=== PATIENT | female | born 1985 | race Caucasian/White ===

== ENCOUNTER → 2021-09-30 15:59 | Outpatient (CLI) | payer OTHER, BC, SELFPAY ==
[2021-09-30 20:21] LABS: Urine N gonorrhoeae NOT DETECTED
[2021-09-30 20:54] LABS: Urine Chlamydia NOT DETECTED
== END ==
PROVIDERS: Visit Provider Obstetrics & Gynecology
DX: Z34.81 Encounter for supervision of other normal pregnancy, first trimester (principal); Z3A.10 10 weeks gestation of pregnancy
CPT/HCPCS: 87491; 87591

== ENCOUNTER → 2021-12-03 15:13 | Outpatient (CLI) | payer OTHER, BC, SELFPAY ==
--- NOTE | 2021-12-03 15:15 | DI.US.S_ITS ---
PROCEDURE: US OB >= 14 WEEKS FETUS INDICATIONS: 20 Week Anatomy Scan OUTSIDE/PRIOR DATING DATA: Last menstrual period (LMP): 07/18/2021. LMP-based estimated date of delivery (HEATHER): 04/24/2022. First dating scan (date and location): 12/03/2021. Estimated date of delivery (HEATHER) from first dating scan: 04/17/2022. The calculations are made using the clinical HEATHER based on LMP of 04/24/2022 TECHNIQUE: Real-time scanning was performed of the fetus, with image documentation and biometric measurements. Endovaginal scanning: Not performed COMPARISON: None FINDINGS: General: A single living intrauterine gestation is present. Presentation: Transverse with head towards maternal left. Placenta: Placental position is posterior , without previa. Amniotic fluid index: 12.1 cm, normal range is 5-24 cm. Single deepest vertical pocket is 4.5 cm. heart rate: 139 beats per minute. Maternal cervical canal: 5.5 cm long. Normal lower limit is 2.5 cm. biometrics: Biparietal diameter: 4.6 cm, 19 weeks 6 days Head circumference: 17.7 cm, 20 weeks 1 day Abdominal circumference: 16.2 cm, 21 weeks 2 days Femur length: 3.6 cm, 21 weeks 3 days Clinically estimated gestational age: 19 weeks 5 days Composite gestational age from present scan: 20 weeks 5 days Estimated weight and percentile: 404 g, 99th percentile Anatomic survey: Neuro: Ventricles are non-dilated at less than 10 mm. Cisterna magna is normal at 3-11 mm. Cerebellum is normal in size and morphology. Nuchal skin fold: Normal at less than 6 mm between 14-21 weeks gestational age. Face: Nose and lips, facial profile are normal. Spine: No evidence for spina bifida. Heart: Suboptimally evaluated secondary to position Diaphragm: Diaphragm is intact. Stomach: Left-sided stomach is present. Kidneys: No hydronephrosis. Normal is less than 5 mm in 2nd trimester, less than 7 mm in 3rd trimester. Cord: 3-vessel cord has orthotopic insertion. Bladder: Normal in size. Extremities: All 4 extremities identified. IMPRESSION: 1. Living 2nd trimester intrauterine . Current ultrasound dates are 7 days greater than clinical dates. However, clinical dates are based on LMP and not an initial ultrasound. The estimated weight measurement is 99th percentile. 2. Cardiac structures suboptimally imaged secondary to position. 3. Otherwise unremarkable anatomy study. Comment: Recommend that the patient return for a limited targeted evaluation of the cardiac structures. We strive to produce accurate, complete, and clear reports of imaging services. To assist us in improving patient care, this report was composed using standard report templates and voice recognition software. Therefore, it may contain abnormal punctuation, insertions and/or omissions. Occasional wrong-word or sound-alike substitutions may occur. Though we review the report and make efforts to correct it, we do recommend that the report be read carefully in proper context to recognize any text inaccuracies. Dictated by: Gerson Caro M.D. on 12/04/2021 at 10:17 Approved by: Gerson Caro M.D. on 12/04/2021 at 10:26
== END ==
PROVIDERS: Referring Provider Obstetrics & Gynecology; Visit Provider Obstetrics & Gynecology
DX: Z34.82 Encounter for supervision of other normal pregnancy, second trimester (principal); Z3A.20 20 weeks gestation of pregnancy
CPT/HCPCS: 76811

== ENCOUNTER → 2021-12-31 14:48 | Outpatient (CLI) | payer OTHER, BC, SELFPAY ==
--- NOTE | 2021-12-31 14:51 | DI.US.S_ITS ---
PROCEDURE: US OB FOLLOW UP INDICATIONS: HEART NOT WELL SEEN ON 20 WEEK ANATOMY SCAN OUTSIDE/PRIOR DATING DATA: Last menstrual period (LMP): 07/18/21. LMP-based estimated date of delivery (HEATHER): 04/24/22. First dating scan (date and location): 12/03/21. Estimated date of delivery (HEATHER) from first dating scan: 04/17/22. The calculations are made using the 2nd trimester ultrasound HEATHER of 04/17/22. TECHNIQUE: Real-time scanning was performed of the fetus, with image documentation. Endovaginal scanning: Not performed COMPARISON: [facility], OB >= 14 WEEKS FETUS, 12/03/2021, 16:49. FINDINGS: A single living intrauterine gestation is present. Presentation: Breech. Placenta: Placental position is posterior, without previa. Amniotic fluid index: 16.9 cm, normal range is 5-24 cm. Single deepest vertical pocket is 4.6 cm. heart rate: 152 beats per minute. Maternal cervical canal: Closed and 5.4 cm long. Normal lower limit is 2.5 cm. Biparietal diameter 5.9 cm, 24 weeks, 0 days Head circumference 22.6 cm 24 weeks, five days Abdominal circumference 20.6 cm, 25 weeks, one day Femur length 4.7 cm, 25 weeks, three days Clinically estimated gestational age: 24 weeks, five days Composite gestational age from current scan: 24 weeks, six days. Estimated weight 777 g, 61st percentile Completion of anatomy scan with good visualization of a four chambered heart, and cardiac outflow tracts. IMPRESSION: 1. Single living intrauterine with appropriate growth. 2. Completion of anatomy scan with visualization of normal cardiac structures. Dictated by: Jyothi Menjivar M.D. on 12/31/2021 at 17:31 Approved by: Jyothi Menjivar M.D. on 12/31/2021 at 17:38
== END ==
PROVIDERS: Referring Provider Obstetrics & Gynecology; Visit Provider Obstetrics & Gynecology
DX: O34.219 Maternal care for unspecified type scar from previous cesarean delivery (principal); Z36.2 Encounter for other antenatal screening follow-up; O09.292 Supervision of pregnancy with other poor reproductive or obstetric history, second trimester; Z3A.24 24 weeks gestation of pregnancy
CPT/HCPCS: 76816

== ENCOUNTER → 2022-01-12 07:04 | Outpatient (CLI) | payer OTHER, BC, SELFPAY ==
[2022-01-12 09:44] LABS: Add Manual Diff / Slide Review NO; Basophils Absolute Auto 0 /uL (0-100); Basophils Percent Auto 0.2 % (0-2); Eosinophils Absolute Auto 100 /uL (0-450); Eosinophils Percent Auto 0.8 % (2-4); Hematocrit 35.8 % (36-46); Hemoglobin 12.5 g/dL (12.0-16.0); Lymphocytes Absolute Auto 1500 /uL (1100-4500); Mean Corpuscular HGB Conc 34.9 % (30-36); Mean Corpuscular Hemoglobin 32.1 PG (26-34); Mean Corpuscular Volume 92.1 fL (80-100); Monocytes Absolute Auto 400 /uL (0-900); Monocytes Percent Auto 5.1 % (3-14); Neutrophils Absolute Auto 5400 /uL (1500-7000); Neutrophils Percent Auto 73.9 % (50-75); Platelet Count 181 X10^3/uL (150-400); Red Blood Cell Count 3.89 X10^6/uL (4.0-5.2); Red Cell Distribution Width 13.7 % (11.6-14.8); White Blood Cell Count 7.3 X10^3/uL (4.5-11.0)
[2022-01-12 10:17] LABS: GTT (PREG) 1 Hour PP 50gm Dose 136 mg/dL (76-139)
== END ==
PROVIDERS: Referring Provider Obstetrics & Gynecology; Visit Provider Obstetrics & Gynecology
DX: O09.299 Supervision of pregnancy with other poor reproductive or obstetric history, unspecified trimester (principal)
CPT/HCPCS: 36415; 82950; 85025

== ENCOUNTER → 2022-03-24 13:56 | Outpatient (CLI) | payer OTHER, BC, SELFPAY ==
[2022-03-25 17:42] LABS: Strep Grp B PCR NEG for Grp B Strep
== END ==
PROVIDERS: Visit Provider Obstetrics & Gynecology
DX: Z34.83 Encounter for supervision of other normal pregnancy, third trimester (principal); Z3A.36 36 weeks gestation of pregnancy
CPT/HCPCS: 87653

== ENCOUNTER 2022-04-15 05:50 | Inpatient (IN) | payer OTHER, BC, SELFPAY ==
--- NOTE | 2022-04-15 06:16 | PM.OBHP.1 ---
OB HPI Date/Time Date of admission: 04/15/22 Date Patient Seen: 04/15/22 Time Patient Seen: 07:00 History of Present Condition Chief complaint: REPEAT : 5 Para: 2 Estimated Date of Delivery: 04/19/22 Estimated Gestational Age (weeks): 39+3 Narrative: Kavya Read is a 36 year old HEATHER 04/19/2022 admitted now at 39+3 for repeat section. course has been largely uneventful milestones and growth. Group B strep is negative. Indications Operative indications ( section): previous uterine surgery History of Present care: good care Dating criteria: LMP confirmed by 1st trimester US Ultrasounds: normal 1st trimester US and normal mid trimester US Obstetrical complications: none Medical complications: none Preadmission Labs Blood type: A (+) positive -: Antibody screen: negative, GBS status: negative, HBsAG: negative, HIV: negative and RPR/VDLR: negative -: Chlamydia screen: not detected and Gonorrhea screen: not detected -: Rubella: immune and Varicella: immune HCT: 35.8 HCAB: negative PAP: Normal Cell-free DNA: Negative for trisomy 1 hr GTT: 136 Prior (ies) History: Prior sections x2 Evaluation Evaluation Baseline heart rate: 130 Variability: Moderate (11-25) monitor accelerations: Present Monitor Decelerations: Absent Category of Tracing: Reactive Status: Category l PFSH Medical History Chicken pox (~1990) GERD (gastroesophageal reflux disease) (~2004) HPV in female (~2014) Spontaneous Surgical History Anesthesia History of History of wisdom tooth extraction Family History Grandfather Thyroid cancer Cancer of blood vessel Mental health problem Dementia Grandmother Diabetes mellitus Hypertension Social History marital status: number of children: 2 household members: spouse and children lives independently: Yes housing: house pets and animals: No education level: college occupational status: employed current occupational exposures/hazards: No special [place] needs: No seatbelt use: always water heater temp set < 120 deg: Yes working smoke detector in home: Yes fire extinguisher in home: Yes carbon monox detector in home: Yes firearms in home: Yes firearms unloaded and locked: Yes do you feel safe at home: Yes Smoking Status: Former smoker second hand exposure: No alcohol intake: former substance use type: does not use during the past year weight has: remained stable well-balanced diet: daily or most days daily servings fruits/ve-4 caffeine: Yes (limit 200mg) Type(s) of exercise: none Meds Home Medications and Allergies Home Medications Medication Instructions Recorded Confirmed Type prenat.vits,mignon,oqo-nrhr-ehuzv 1 tab PO DAILY 09/18/21 04/13/22 History Allergies Allergy/AdvReac Type Severity Reaction Status Date / Time amoxicillin Allergy Mild Verified 04/13/22 13:28 Review of Systems Review of Systems Narrative: Problem-specific ROS positives included in HPI OB Exam HENMT Head: normal to inspection, normocephalic and atraumatic Eyes General: appearance normal, both eyes and all related structures Resp Effort & Inspection: normal respiratory effort and able to speak in complete sentences Auscultation: clear to auscultation bilaterally Cardio Rate: regular rate Rhythm: regular rhythm Heart Sounds: S1 normal, S2 normal and no murmurs Extremities Lower extremity: Yes normal to inspection GI Inspection: normal to inspection Palpation: Yes soft and Yes no hepatosplenomegaly Uterus Location (Fundal Height): 39 Presentation: vertex Estimated Weight (lbs): 9 Assessment and Plan Assessment and Plan Assessment and Plan narrative: ASSESSMENT 1. Intrauterine gestation, [place], 39+ 3 weeks gestational age 2. Prior section PLAN 1. Admit for repeat section 2. See admission orders Time Spent with Patient Total time spent with greater than 50% in coordination of care (as documented) at patient's floor/unit and/or counseling patient:: 15-24 minutes
[2022-04-15 06:48] LABS: Add Manual Diff / Slide Review NO; Basophils Absolute Auto 0 /uL (0-100); Basophils Percent Auto 0.3 % (0-2); Eosinophils Absolute Auto 0 /uL (0-450); Eosinophils Percent Auto 0.6 % (2-4); Hematocrit 36.5 % (36-46); Hemoglobin 12.8 g/dL (12.0-16.0); Lymphocytes Absolute Auto 1900 /uL (1100-4500); Lymphocytes Percent Auto 24.2 % (25-40); Mean Corpuscular HGB Conc 35.1 % (30-36); Mean Corpuscular Hemoglobin 31.3 PG (26-34); Mean Corpuscular Volume 89.2 fL (80-100); Monocytes Absolute Auto 500 /uL (0-900); Monocytes Percent Auto 6.9 % (3-14); Neutrophils Absolute Auto 5300 /uL (1500-7000); Platelet Count 199 X10^3/uL (150-400); Red Blood Cell Count 4.09 X10^6/uL (4.0-5.2); Red Cell Distribution Width 14.2 % (11.6-14.8); White Blood Cell Count 7.7 X10^3/uL (4.5-11.0)
--- NOTE | 2022-04-15 07:13 | PM.PREOP ---
Pre-operative Note COVID-19 COVID-19 status: Negative Result date/Date tested (Pos, Neg/Pending): 04/15/22 Criteria for continued procedure: Non-surgical alternatives not available or appropriate per current SOC Interval Note History & Physical reviewed/Exam performed by Physician: Yes Changes to H&P: No
[2022-04-15 07:26] LABS: COVID19 -Nasal RAPID Negative (Negative)
[2022-04-15] MEDS: CEFAZOLIN 2 GM/100 ML PREMIX 100 ML IV (08:13)
[2022-04-15] MEDS: LACTATED RINGERS 1,000 ML 100 ML IV ×2 (08:30→10:51)
[2022-04-15] MEDS: ACETAMINOPHEN IV 1,000 MG/100 ML VIAL 400 MG IV (08:30)
--- NOTE | 2022-04-15 08:43 | SUR.OPER ---
Supine on Padded OR bed, head on pillow, safety belt at thigh, arms secured on padded arm boards at <90 degrees abduction. Bump under right buttock. Legs uncrossed with pillow under knees, gel pad to heels, tape over blanket to lower legs. Gel pad under bilateral heels and gel pad between urinary catheter tubing and posterior upper leg.
--- NOTE | 2022-04-15 08:44 | SUR.OPER ---
Viable baby girl delivered at 0833. Placenta delivered. Cord blood tubes X2 and placenta given to L&D RN.
[2022-04-15 09:17] VITALS: BP 115/76; PULSE 96; RESP 15; O2SAT 99
[2022-04-15 09:22] VITALS: BP 177/80; PULSE 111; RESP 26; O2SAT 98
--- NOTE | 2022-04-15 09:22 | PM.OBCS.1 ---
Operative Date/Time/Diagnoses Date of procedure: 04/15/22 Time of procedure: 08:15 Pre-op diagnosis: Intrauterine gestation, [place], 39+ 3 weeks gestational age Prior sections x2 Post-op diagnosis: same Procedure & Clinicians Procedure: Repeat section, low transverse cervical Same procedure as scheduled: Yes Indications: Kavya Read is a 36 year old HEATHER 04/19/2022 admitted now at 39+3 for repeat section.? course has been largely uneventful milestones and growth.? Group B strep is negative. Surgeon: Gordo Corrigan Telephone Coin Box Collector: Kamala Reyes Reason for Telephone Coin Box Collector: Telephone Coin Box Collector required for the safe, effective, and timely completion of this surgery. Anesthesia Type: Spinal Operative Notes Findings: Viable female infant BW 3779 gms. (8 lbs. 5.3 oz.), Apgars 9/9, delivered from the vertex presentation. Normal gravid anatomy. Closure Type: primary Specimen(s): cord blood Intraoperative meds administered: Ketorolac and Pitocin Applied: Catheter Estimated Blood Loss (mL): 700 Blood products transfused: none Procedure in detail: With her informed written consent, the patient was taken to the operating room and placed in the supine position for a repeat section procedure, for the indication(s) above. The abdomen was prepped and draped in the usual manner for section and a pre-surgical timeout was taken per [facility] OR protocol. Once effective anesthesia was confirmed, a 15 cm transverse Pfannenstiel incision was made in the skin and taken down through the subcutaneous tissues to the deep fascia. The deep fascia was incised transversely, the rectus abdominal eyes bluntly and sharply, and the peritoneal cavity entered without difficulty. The lower uterine segment was visualized and the position/presentation palpated. A transverse incision at or above the vesicouterine reflection was made with Metzenbaum scissors and transverse hysterotomy performed near the midline. Amniotomy revealed clear fluid. The incision was extended bilaterally with digital traction and the was delivered without difficulty from the vertex presentation. The infant was vigorous and cord clamping delayed for 60 seconds. The placenta was delivered intact using gentle cord traction and fundal massage.The uterine cavity was then cleared of any clot/debris first with a sloppy wet lap tape followed by a dry lap tape. Ring forceps were then applied to the angles and the midline of the incised RYLEY. A primary closure of the uterus was then accomplished with #1 CCGS in a running interlocking stitch followed by a 2nd layer of #1 CCGS in a running interlocking imbricating stitch. One additional CCGS [id number] suture was required to achieve complete hemostasis. Once pelvic hemostasis was assured, the blsadder flap and anterior peritoneum wwere closed with a running 2-0 Vicryl suture and the fascia closed with #1 Vicryl in a running stitch initiated at both angles and tying separately near the midline. The subcutaneous tissues were reapproximated with 2-0 plain catgut suture using inverted interrupted stitches. The skin edges were then brought together with 4-0 Monocryl in a subcuticular closure and the incision was reinforced with 1 Steri-Strips. An appropriate compression dressing was applied and the patient transferred to PACU for recovery and subsequent transfer to the Center for recuperation. Complications: none [place] Baby 1: Gender: Female Presentation: vertex Position: Left Occiput Anterior Placental Delivery Description: Spontaneous and Expressed Cord Vessel Description: 3 Vessels score (1 min): 9 score (5 min): 9 weight: 8 lb 5.3 oz Post-operative Condition: stable Disposition: PACU Aftercare: routine postop
[2022-04-15 09:30] VITALS: BP 108/70; PULSE 98; RESP 23; O2SAT 99
[2022-04-15 09:32] VITALS: BP 101/66; PULSE 94; RESP 19; TEMP 36.2; O2SAT 98
--- NOTE | 2022-04-15 09:40 | SUR.PHASEI ---
Report called to Verna.
--- NOTE | 2022-04-15 10:00 | SUR.PHASEI ---
Patient transferred to the center. Report given to Verna. VS stable. IV patent. Margo pad, under pad changed, patient cleaned.
[2022-04-15 10:42] VITALS: BP 120/63
[2022-04-15] MEDS: KETOROLAC 30 MG/ML VIAL IV ×2 (14:54→22:07)
[2022-04-15] MEDS: ACETAMINOPHEN 325 MG TABLET 650 MG PO (22:07)
[2022-04-15] MEDS: DOCUSATE 100 MG CAPSULE 200 MG PO (23:27)
[2022-04-16] MEDS: ACETAMINOPHEN 325 MG TABLET 650 MG PO ×3 (05:06→18:58)
[2022-04-16] MEDS: KETOROLAC 30 MG/ML VIAL IV (05:06)
[2022-04-16 07:09] LABS: Add Manual Diff / Slide Review NO; Basophils Absolute Auto 0 /uL (0-100); Basophils Percent Auto 0.3 % (0-2); Eosinophils Absolute Auto 0 /uL (0-450); Eosinophils Percent Auto 0.5 % (2-4); Hematocrit 31.1 % (36-46); Lymphocytes Absolute Auto 1700 /uL (1100-4500); Lymphocytes Percent Auto 20.4 % (25-40); Mean Corpuscular HGB Conc 35.3 % (30-36); Mean Corpuscular Hemoglobin 31.7 PG (26-34); Mean Corpuscular Volume 89.8 fL (80-100); Monocytes Absolute Auto 500 /uL (0-900); Neutrophils Absolute Auto 6200 /uL (1500-7000); Neutrophils Percent Auto 72.8 % (50-75); Platelet Count 166 X10^3/uL (150-400); Red Blood Cell Count 3.46 X10^6/uL (4.0-5.2); Red Cell Distribution Width 14.7 % (11.6-14.8); White Blood Cell Count 8.5 X10^3/uL (4.5-11.0)
--- NOTE | 2022-04-16 09:10 | PM.OBPN.1 ---
Subjective - OB Subjective Patient comments: no complaints and pain well controlled baby status: doing well feeding status: exclusively breast feeding Narrative: Patient is doing well overnight but limited ambulation thus far. Patient tolerating regular diet, pain well controlled, + flatus but no BM as yet. Date Patient Seen: 04/16/22 Time Patient Seen: 09:11 Exam Vital Signs (past 8 hours): Oxygen Delivery Method Room Air Const General: cooperative and comfortable Nutritional Appearance: average body habitus Orientation: alert and oriented x3 HENMT Head: normal to inspection, atraumatic and abrasion Ears: hearing grossly normal bilaterally Face and sinus: face symmetric Eyes General: appearance normal, both eyes and all related structures Conjunctivae: conjunctivae normal Sclera: sclerae normal EOM: EOM intact bilaterally Neck Neck: normal visual inspection Resp Effort & Inspection: normal respiratory effort and able to speak in complete sentences Auscultation: clear to auscultation bilaterally Cardio Rate: regular rate Rhythm: regular rhythm Heart Sounds: S1 normal, S2 normal and no murmurs GI Inspection: normal to inspection and incision (Surgical dressing clean and dry) Palpation: soft, no hepatosplenomegaly, mass (Firm, mildly tender fundus, U -3) and tender (Mild, diffuse postsurgical tenderness) Auscultation: hypoactive bowel sounds External Female Exam: other (No significant bleeding noted) Extrem General: no calf tenderness Psych Appearance: grossly normal Mental Status: mental status grossly normal Speech and Movement: speech and movement normal Mood: congruent mood Affect: normal affect Attitude: cooperative Thought Process: normal Thought Content: normal Judgment: judgment good Objective Labs Result Diagrams: 04/16/22 06:55 Labs: Laboratory Results - last 24 hr 04/16/22 06:55 WBC 8.5 RBC 3.46 L Hgb 11.0 L Hct 31.1 L MCV 89.8 MCH 31.7 MCHC 35.3 RDW 14.7 Plt Count 166 Neut % (Auto) 72.8 Lymph % (Auto) 20.4 L [place] % (Auto) 6.0 Eos % (Auto) 0.5 L Baso % (Auto) 0.3 Neut # (Auto) 6200 Lymph # (Auto) 1700 [place] # (Auto) 500 Eos # (Auto) 0 Baso # (Auto) 0 Assessment & Plan Plan day: 1 plan OB: routine postop care Time Spent With Patient Time: Total time spent is greater than 50% in coordination of care (as documented) at patient's floor/unit and/or counseling patient: Time with patient: 15-24 minutes
[2022-04-16] MEDS: IBUPROFEN 600 MG TABLET PO ×2 (11:26→18:58)
[2022-04-16] MEDS: LANOLIN OINT 7 GM 1 APPLIC TOP (11:27)
--- NOTE | 2022-04-16 17:38 | P.DS_ITS ---
Discharge Providers Provider Date of admission: 04/15/22 05:50 Discharge Date: 04/16/22 Consults: 04/15/22 10:36 Consult to Product Support Representative Routine Comment: Discharge provider: Gordo Corrigan MD Summary Hospital Course Date Patient Seen: 04/16/22 Time Patient Seen: 17:38 Diagnoses: Intrauterine gestation, [place], 39+ 3 weeks gestational age, delivered by repeat section Hospital Course: Kavya was admitted and underwent an uneventful repeat section on the morning of 04/15/2022. Details of the procedure well summarized on my operative note of that date. Following the procedure the patient has done extremely well with prompt return of bowel and bladder function, she is ambulating independently, tolerating regular diet, and her pain is well relieved with oral pain medications. She will be discharged at this time to home in an afebrile normotensive condition after counseling regarding precautionary symptoms, limitations of activity, medications, and plans for follow-up. Medications at discharge will include all medications she was taking prior to gonzalez, oxycodone 10 mg p.o. q.6 hours as needed pain, ibuprofen 600 mg p.o. q.6 hours as needed pain, Colace 200 mg p.o. b.i.d. as needed constipation. Prior to discharge, her compression dressing was removed and an AquaCel dressing placed. Her follow-up will be in 1 week for an incision check. Peripartum Data Infant Delivery Method: Section Laceration Description: None Episiotomy description: None Procedures: Repeat section (low transverse cervical) complications: none [place] 1: Gender: Female Disposition of : home Status at Discharge Cognitive/behavioral status at discharge: oriented Functional status at discharge: independent ambulation Overall status at discharge: patient is progressing back to baseline Time Spent with Patient Time attestation: Total time spent providing and/or coordinating discharge services: Time spent: Less than 30 minutes Objective Labs Result Diagrams: 04/16/22 06:55 Labs: Laboratory Results - last 24 hr 04/16/22 06:55 WBC 8.5 RBC 3.46 L Hgb 11.0 L Hct 31.1 L MCV 89.8 MCH 31.7 MCHC 35.3 RDW 14.7 Plt Count 166 Neut % (Auto) 72.8 Lymph % (Auto) 20.4 L [place] % (Auto) 6.0 Eos % (Auto) 0.5 L Baso % (Auto) 0.3 Neut # (Auto) 6200 Lymph # (Auto) 1700 [place] # (Auto) 500 Eos # (Auto) 0 Baso # (Auto) 0 Exam Vital Signs (past 8 hours): Oxygen Delivery Method Room Air Const General: cooperative and comfortable Nutritional Appearance: average body habitus Orientation: alert and oriented x3 HENMT Head: normal to inspection, atraumatic and abrasion Ears: hearing grossly normal bilaterally Face and sinus: face symmetric Eyes General: appearance normal, both eyes and all related structures Conjunctivae: conjunctivae normal Sclera: sclerae normal EOM: EOM intact bilaterally Neck Neck: normal visual inspection Resp Effort & Inspection: normal respiratory effort and able to speak in complete sentences Auscultation: clear to auscultation bilaterally Cardio Rate: regular rate Rhythm: regular rhythm Heart Sounds: S1 normal, S2 normal and no murmurs GI Inspection: normal to inspection and incision (Incision clean and dry; compression dressing removed, AquaCel applied) Palpation: soft, no hepatosplenomegaly, mass (Mildly tender firm fundus, U -5) and tender (Mild, diffuse postsurgical tenderness) External Female Exam: other (No significant bleeding noted) Extrem General: no calf tenderness Psych Appearance: grossly normal Mental Status: mental status grossly normal Speech and Movement: speech and movement normal Mood: congruent mood Affect: normal affect Attitude: cooperative Thought Process: normal Thought Content: normal Judgment: judgment good Discharge Plan Discharge Plan Patient Disposition: Home Provider Discharge Comment: Please review the written instructions you received when you were discharged from the hospital. Your follow-up appointment for incision check is scheduled for next week and I look forward to seeing you then. If however in the meanwhile you have any issues, concerns, or questions, please contact me either through the office phone at [phone] or via the patient portal. Discharge orders & Medications Prescriptions: New ibuprofen 600 mg Tablet 600 mg PO Q6H PRN (Reason: Fever/Mild Pain (1-3)) Qty: 60 2RF docusate sodium 100 mg Capsule 200 mg PO BID 14 Days Qty: 60 2RF Continued prenat.vits,mignon,[id number] Tablet 1 tab PO DAILY No Action oxycodone 10 mg tablet 10 mg PO Q6H PRN (Reason: pain) Qty: 20 0RF Follow up/Referrals: Gordo Corrigan MD [Physician] - 04/23/22 4:15 pm (Incision check on 04/23/2022 @ 1615pm. 6 week appointment on 05/21/2022 @ 1330 pm) Discharge Health Status Multidrug resistant organism: No MDRO Diet/Activity/Treatments Diet: Diet as Tolerated Activity: As tolerated Other treatments: Iilu-pas-ttueemy Tylenol may also be used for pain relief Skin/Wound/Dressing Care Report to your healthcare provider any signs of infection, such as:: chills, fever, increased pain, unusual drainage and unusual redness Dressing: Dressing will be removed at your one-week postop visit. Visit Report/Discharge Packet Instructions: DI for , DI for and Nipple Soreness, DI for Prescription Opioid Use Stand Alone Forms: Discharge: Care
[2022-04-16] MEDS: MEASLES,MUMPS,RUBELLA VACC/PF 0.5 ML VIAL SUBCUT (18:38)
[2022-04-16 19:35] VITALS: BP 120/63; PULSE 94; RESP 19; TEMP 36.2
== END 2022-04-16 19:10 | disposition home or self-care (01) | DRG 788 ==
PROVIDERS: Admitting Provider Obstetrics & Gynecology; Referring Provider Obstetrics & Gynecology; Visit Provider Obstetrics & Gynecology
PROC: 10D00Z1 Extraction of Products of Conception, Low, Open Approach (ICD-10-PCS; CPT 59514; principal; 2022-04-15 07:45)
DX: O34.211 Maternal care for low transverse scar from previous cesarean delivery (principal); Z3A.39 39 weeks gestation of pregnancy; Z37.0 Single live birth; Z20.822 Contact with and (suspected) exposure to COVID-19
CPT/HCPCS: 36415; 59050; 59510; 59514; 85025; 86850; 86900; 86901; 87635; C9803; J0131; J0690; J1885; J2274; J2590